=== PATIENT | male | born 1950 | race Caucasian/White ===

== ENCOUNTER → 2017-03-29 | Outpatient (CLI) | payer OTHER, MEDICARE | LOC: BMCIMAGING 08:32 | PROVIDERS: ATTEND Orthopaedic Surgery | DX: M25.552 Pain in left hip (principal); M25.9 Joint disorder, unspecified ==

== ENCOUNTER 2018-08-05 02:49 | Observation (INO) | payer OTHER, MEDICARE ==
--- NOTE | 2018-08-05 02:56 | EDPHY ---
H & P Time Seen by Provider: 08/05/18 02:56 HPI/ROS: HPI CHIEF COMPLAINT: Shortness of breath, dyspnea on exertion, right-sided pleuritic pain. HISTORY OF PRESENT ILLNESS: This is a very pleasant 67-year-old male, history of hyperlipidemia, additionally history of coronary artery disease without stents due to a high calcium score, presents emergency room with 1 and half months of dyspnea on exertion progressively getting worse. Patient reports to me he is an avid runner. He states over the past month and a half he has progressively worsening shortness of breath especially when he goes to run. States when he has been running he gets dyspnea on exertion has to stop running and walk. He also reports that he has elevated heart rate. Denies any significant chest pain. However at times when he is exerting himself he has developed some chest pressure. He reports to me that she denies when he takes deep breath in he gets some right -sided sharp stabbing pleuritic pain. Denies he woke up around 1:30 a.m. State he thought his heart rate was fast in 80s to 90s. No chest pain. No fever, he has developed a dry cough. Recently saw his chiropractor and was discussing all this with him and was concerned about pulmonary embolism in recommend get checked out. Past Medical History: Hyperlipidemia, high calcium score. Liver hemangioma. Past Surgical History: Liver hemangioma removal. Social History: Denies drugs alcohol tobacco daily. Avid runner. 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 Family History: Significant cardiovascular history in his father. OR late 50s. ROS REVIEW OF SYSTEMS: 10 Systems were reviewed and negative with the exception of the elements mentioned in the history of present illness. Exam Constitutional triage nursing summary reviewed, vital signs reviewed, awake/ alert. Eyes normal conjunctivae and sclera, EOMI, PERRLA. HENT normal inspection, atraumatic, moist mucus membranes, no epistaxis, neck supple/ no meningismus, no raccoon eyes. Respiratory clear to auscultation bilaterally, normal breath sounds, no respiratory distress, no wheezing. Cardiovascular rate normal, regular rhythm, no murmur, no edema, distal pulses normal. Gastrointestinal soft, non-tender, no rebound, no guarding, normal bowel sounds, no distension, no pulsatile mass. Genitourinary no CVA tenderness. Musculoskeletal no midline vertebral tenderness, full range of motion, no calf swelling, no tenderness of extremities, no meningismus, good pulses, neurovascularly intact. Skin pink, warm, & dry, no rash, skin atraumatic. Neurologic awake, alert and oriented x 3, AAOx3, moves all 4 extremities equally, motor intact, sensory intact, CN II-XII intact, normal cerebellar, normal vision, normal speech. Psychiatric normal mood/affect. Heme/Lymph/Immune no lymphadenopathy. Differential Diagnosis: Differential diagnosis includes but is not limited to: ACS, atypical chest pain, pneumothorax, pneumonia, pulmonary embolism, aortic dissection, congestive heart failure, tumor, musculoskeletal pain, esophageal pain, GERD, peptic ulcer disease, pancreatitis Medical Decision Making: Plan for this patient IV establishment with IV fluid bolus, EKG, troponin, dolly operator, basic labs, D-dimer, low threshold for CT angiogram of the chest. Re-evaluation: EKG interpretation by me on record in [employer] system. Impression time of EKG 3:21 a.m., sinus rhythm rate of 78, I do not appreciate any acute significant ST elevation. Patient has a positive D-dimer 2.91. Will proceed with CT angiogram of the chest to rule out pulmonary embolism. CT angiogram of the chest obtained a positive D-dimer in the setting of right- sided pleuritic pain this shows bilateral acute appearing pulmonary emboli most proximally within the right interlobar pulmonary artery with finding suspicion for right heart strain correlate with echocardiogram suggested. Pulmonary infarct in the tendon inferior right lower lobe. Given the patient's pulmonary emboli with pulmonary infarct plan will be for heparin drip. Admit to the hospital. Faxed me by direct Radiology at 5:01 a.m.. Will consult the hospitalist service for admission. 0522: Spoke with the hospitalist service agrees for admission. Dr. Reid Agrees to admit Patient updated agrees for admission. Source: Patient Constitutional: Initial Vital Signs Temperature (C) 36.9 C 08/05/18 02:56 Heart Rate 82 08/05/18 02:56 Respiratory Rate 16 08/05/18 02:56 Blood Pressure 168/101 H 08/05/18 02:56 O2 Sat (%) 96 08/05/18 02:56 O2 Delivery Mode Room Air Allergies/Adverse Reactions: No Known Allergies Allergy (Verified 08/05/18 02:54) Home Medications: Medication Instructions Recorded Herbals/Supplements -Info Only 1 ea PO DAILY 08/05/18 Levothyroxine [Synthroid 50 mcg 50 mcg PO DAILY06 08/05/18 (*)] Melatonin [Melatonin 1 mg] 1 mg PO HS 08/05/18 [place]-3 Fatty Acids [Fish Oil 1000 1,000 mg PO DAILY 08/05/18 mg (*)] [place]-3 Fatty Acids [Fish Oil 1000 2,000 mg PO HS 08/05/18 mg (*)] Rosuvastatin Calcium [Crestor] 10 mg PO HS 08/05/18 Apixaban [Eliquis] 10 mg PO BID #74 tab 08/06/18 Medical Decision Making - Data Points Laboratory Results: Laboratory Results 08/05/18 03:06 08/05/18 03:06 Medications Given: Discontinued Medications Acetaminophen (Tylenol) 650 mg PO Q4HRS PRN PRN Reason: Pain, Mild/Fever, Can Take PO Stop: 02/01/19 05:21 Last Admin: 08/05/18 21:12 Dose: 650 mg Apixaban (Eliquis) 10 mg PO BID CHAVA Stop: 02/02/19 08:59 Last Admin: 08/06/18 10:01 Dose: 10 mg Heparin Sodium (Porcine) (Heparin Injection) 0 unit IVP EDNOW ONE Stop: 08/05/18 05:06 Last Admin: 08/05/18 05:20 Dose: 6,700 units Sodium Chloride (Ns) 1,000 mls @ 0 mls/hr IV EDNOW ONE; Wide Open PRN Reason: Protocol Stop: 08/05/18 03:12 Last Admin: 08/05/18 03:16 Dose: 1,000 mls Heparin Sodium (Porcine) (Heparin 50 Units/Ml (Premix)) 500 mls @ 0 mls/hr IV EDNOW ONE; Per Protocol PRN Reason: Protocol Stop: 08/05/18 05:06 Last Admin: 08/05/18 05:20 Dose: 500 mls Heparin Sodium (Porcine) (Heparin 50 Units/Ml (Premix)) 500 mls @ 0 mls/hr IV CONT CHAVA; Per Protocol PRN Reason: Protocol Stop: 02/01/19 05:29 Last Admin: 08/05/18 22:18 Dose: 500 mls [facility]othy[facility]ine [facility] Stop: 02/02/19 05:59 Last Admin: 08/06/18 05:51 Dose: 50 mcg Miscellaneous Medication (Melatonin [Melatonin 1 Mg]) 1 mg PO HS [facility] Stop: 02/01/19 20:59 Last Admin: 08/05/18 21:26 Dose: Not Given [id number]-[id number] Ethyl Esters (Fish Oil) 1,000 mg PO DAILY [facility] Stop: 02/02/19 08:59 Last Admin: 08/06/18 10:01 Dose: 1,000 mg Yzcvq-3-Turo Ethyl Esters (Fish Oil) 2,000 mg PO HS [facility] Stop: 02/01/19 20:59 Last Admin: 08/05/18 21:12 Dose: 2,000 mg Rosuvastatin Calcium (Crestor) 10 mg PO [facility] Stop: 02/01/19 20:59 Last Admin: 08/05/18 21:12 Dose: 10 mg Point of Care Test Results: Chemistry 08/05/18 03:17 POC Troponin I 0.00 ng/mL ng/mL (0.00-0.08) Departure - Departure Disposition: [facility] Inpatient Acute Clinical Impression: Pulmonary emboli Qualifiers: Pulmonary embolism type: other Chronicity: acute Acute cor pulmonale presence: with acute cor pulmonale Qualified Code(s): I26.09 - Other pulmonary embolism with acute cor pulmonale Condition: Fair
[2018-08-05] MEDS ORDERED: NS 1,000 ML IV ONE (03:11)
[2018-08-05 03:19] LABS: PLATELET COUNT 193 10^3/uL (150-400)
[2018-08-05 03:27] LABS: INR 0.99 (0.83-1.16); PROTIME(PATIENT) 12.7 SEC (12.0-15.0)
[2018-08-05] MEDS ORDERED: IOPAMIDOL (ISOVUE 370) 100 ML BTL IV ONE (04:01)
[2018-08-05] MEDS ORDERED: HEPARIN/DEXTROSE 500 ML IV ONE (05:05)
[2018-08-05] MEDS ORDERED: HEPARIN 10,000 UNIT/10 ML MDV (1,000 UNIT/ML) IVP ONE (05:05)
[2018-08-05] MEDS ORDERED: ACETAMINOPHEN 325 MG TAB PO PRN (05:22)
[2018-08-05] MEDS ORDERED: ONDANSETRON DISINTEGRATING 4 MG TAB PO PRN (05:22)
[2018-08-05] MEDS ORDERED: ONDANSETRON 4 MG/2 ML VIAL IVP PRN (05:22)
[2018-08-05] MEDS ORDERED: HEPARIN 10,000 UNIT/10 ML MDV (1,000 UNIT/ML) IVP PRN (05:24)
[2018-08-05] MEDS ORDERED: HEPARIN/DEXTROSE 500 ML IV SCH (05:30)
--- NOTE | 2018-08-05 05:45 | PDGENHP ---
History and Physical - Chief Complaint Chest pain - History of Present Illness 67 yo M w/ hx of hypothyroid and HLD presents with R chest wall pain and MCNAMARA. The patient is an avid runner. He has noted a decrease in his exercise ability for the last 6 weeks or so. This mostly manifests asa dyspnea on exertion. Over the last 2 days he then developed R chest wall pain. He noted his heart racing while in bed last night so decided to come in to the ED for evaluation. His evaluation was notable for an elevated D-dimer; CT shows multiple pulmonary emboli with CT evidence of Rt heart strain. He denies recent injury, surgery, or immobilization. He does not have a personal hx of blood clots but he tells me his father of a blood clot. His VS and laboratory work-up are reassuring. He is being admitted for heparin initiation and further work-up. Case discussed with ED physician Dr. Ashton; records reviewed and summarized above. History Information - Allergies/Home Medication List Allergies/Adverse Reactions: No Known Allergies Allergy (Verified 08/05/18 02:54) Home Medications: "Porcine Thyroid" 12/23/10 [Last Taken Unknown] Aspirin [Aspirin 81mg] 81 mg PO DAILY 12/23/10 [Last Taken Unknown] SIMVASTATIN [Zocor] 20 mg PO 12/23/10 [Last Taken Unknown] Levothyroxine [Synthroid 88 mcg (*)] 88 mcg PO DAILY06 08/05/18 [Last Taken Unknown] I have personally reviewed and updated: family history, medical history - Past Medical History hyperlipidemia - Surgical History Additional surgical history: Partial liver resection - Family History Additional family history: Father of a blood clot. - Social History Smoking Status: Former smoker Review of Systems Review of Systems: ROS: 10pt was reviewed & negative except for what was stated in HPI & below Physical Exam Physical Exam: Temp Pulse Resp BP Pulse Ox 36.9 C 77 16 166/90 H 96 08/05/18 02:56 08/05/18 04:22 08/05/18 04:22 08/05/18 04:22 08/05/18 04:22 Constitutional: no apparent distress, not in pain Eyes: PERRL, EOMI Ears, Nose, Mouth, Throat: moist mucous membranes, no oral mucosal ulcers Cardiovascular: regular rate and rhythym, no murmur, rub, or gallop Respiratory: no respiratory distress, clear to auscultation Gastrointestinal: normoactive bowel sounds, soft, non-tender abdomen Skin: warm, normal color Musculoskeletal: full muscle strength, no muscle tenderness Neurologic: AAOx3, CN II-XII Intact Psychiatric: interacting appropriately, not anxious Lab Data & Imaging Review 08/05/18 03:06 08/05/18 03:06 WBC 8.78 10^3/uL (3.80-9.50) 08/05/18 03:06 RBC 4.67 10^6/uL (4.40-6.38) 08/05/18 03:06 Hgb 15.1 g/dL (13.7-17.5) 08/05/18 03:06 Hct 43.4 % (40.0-51.0) 08/05/18 03:06 MCV 92.9 fL (81.5-99.8) 08/05/18 03:06 MCH 32.3 pg (27.9-34.1) 08/05/18 03:06 MCHC 34.8 g/dL (32.4-36.7) 08/05/18 03:06 RDW 12.9 % (11.5-15.2) 08/05/18 03:06 Plt Count 193 10^3/uL (150-400) 08/05/18 03:06 MPV 10.1 fL (8.7-11.7) 08/05/18 03:06 Neut % (Auto) 71.3 % (39.3-74.2) 08/05/18 03:06 Lymph % (Auto) 15.9 % (15.0-45.0) 08/05/18 03:06 [place] % (Auto) 10.4 % (4.5-13.0) 08/05/18 03:06 Eos % (Auto) 1.8 % (0.6-7.6) 08/05/18 03:06 Baso % (Auto) 0.3 % (0.3-1.7) 08/05/18 03:06 Nucleat RBC Rel Count 0.0 % (0.0-0.2) 08/05/18 03:06 Absolute Neuts (auto) 6.25 10^3/uL (1.70-6.50) 08/05/18 03:06 Absolute Lymphs (auto) 1.40 10^3/uL (1.00-3.00) 08/05/18 03:06 Absolute Monos (auto) 0.91 10^3/uL (0.30-0.80) H 08/05/18 03:06 Absolute Eos (auto) 0.16 10^3/uL (0.03-0.40) 08/05/18 03:06 Absolute Basos (auto) 0.03 10^3/uL (0.02-0.10) 08/05/18 03:06 Absolute Nucleated RBC 0.00 10^3/uL (0-0.01) 08/05/18 03:06 Immature Gran % 0.3 % (0.0-1.1) 08/05/18 03:06 Immature Gran # 0.03 10^3/uL (0.00-0.10) 08/05/18 03:06 PT 12.7 SEC (12.0-15.0) 08/05/18 03:06 INR 0.99 (0.83-1.16) 08/05/18 03:06 APTT 29.8 SEC (23.0-38.0) 08/05/18 03:06 D-Dimer 2.91 ug/mLFEU (0.00-0.50) H 08/05/18 03:06 Sodium 138 mEq/L (135-145) 08/05/18 03:06 Potassium 4.4 mEq/L (3.5-5.2) 08/05/18 03:06 Chloride 100 mEq/L (97-110) 08/05/18 03:06 Carbon Dioxide 28 mEq/l (22-31) 08/05/18 03:06 Anion Gap 10 mEq/L (6-14) 08/05/18 03:06 BUN 22 mg/dL (7-23) 08/05/18 03:06 Creatinine 0.9 mg/dL (0.7-1.3) 08/05/18 03:06 Estimated GFR > 60 08/05/18 03:06 Glucose 89 mg/dL (70-100) 08/05/18 03:06 Calcium 8.9 mg/dL (8.5-10.4) 08/05/18 03:06 Magnesium 2.1 mg/dL (1.6-2.3) 08/05/18 03:06 Total Bilirubin 0.7 mg/dL (0.1-1.4) 08/05/18 03:06 Conjugated Bilirubin 0.1 mg/dL (0.0-0.5) 08/05/18 03:06 Unconjugated Bilirubin 0.6 mg/dL (0.0-1.1) 08/05/18 03:06 AST 25 IU/L (17-59) 08/05/18 03:06 ALT 35 IU/L (21-72) 08/05/18 03:06 Alkaline Phosphatase 61 IU/L (38-126) 08/05/18 03:06 POC Troponin I 0.00 ng/mL (0.00-0.08) 08/05/18 03:17 NT-Pro-B Natriuret Pep 26 pg/mL (0-125) 08/05/18 03:06 Total Protein 6.6 g/dL (6.3-8.2) 08/05/18 03:06 Albumin 3.8 g/dL (3.5-5.0) 08/05/18 03:06 Visualized and Interpreted EKG results: Yes EKG Interpretation: Positive for: normal sinsus rhythm Assessment & Plan Assessment: 67 yo M w/ hx of HLD presents with pulmonary emboli. Plan: 1. Pulmonary emboli - Seemingly unprovoked; patient has no VTE hx but tells me father of a blood clot. CT demonstrates multiple pulmonary emboli with CT evidence of Rt heart strain. He denies recent injury, surgery, or immobilization. His VS and laboratory work-up are reassuring. - Admit for observation - Heparin gtt started in ED, will continue for now - TTE ordered to evaluate Rt heart strain seen on CT 2. HLD - Continue statin 3. Hypothyroid - Continue LTX Diet - Regular Code - Full Ppx - Heparin gtt Dispo - Admit under observation status
--- NOTE | 2018-08-05 09:46 | ASMTCASEMG ---
Living Arrangements What is your living Answers: With Spouse arrangement? Who do you live with? Type Of Residence What kind of residence do Answers: House you live in? Case Management Evaluation Functional: Able to Answers: No return Home with Prior Level of Function/Care Discharge Plan Comments Coordination Status Comments Notes: Pt was admitted early this morning through ED for complaints of shortness of breath, dyspnea on exertion, and right-sided pleuritic pain. Imaging shows a right-sided pulmonary embolism. CM met with pt and hospitalist Dr. Jeerz in pt's room. It was determined that pt has frequent (every 5 - 10 days) episodes of arrhythmia but has never seen a underground mine superintendent about it. With his permission, Dr. Jerez put in a cardiology referral for pt to be seen while he is here in the hospital. Pt lives at home with his Piper [phone] in [place] and is otherwise healthy and independent. He is a runner and runs about 20 miles per week. His father of a blood clot so pt has some concern about that. CM will continue to follow in case needs arise. CM plan: TBD (most likely independent to home) Date Signed: 08/05/2018 09:45 AM Electronically Signed By:Kayley Jenkins
--- NOTE | 2018-08-05 09:52 | HOSPPROG ---
Hospitalist Progress Note Assessment/Plan: # PE, provoked after trip to [place] - cont heparin gtt for now # NSVT, 8 beats - reports positive calcium scans in the past, no other cardiac testing - discussed with Dr Nelson - echo ordered # HLD - statin Subjective: CP ongoing Objective: Vital Signs Temp Pulse Resp BP Pulse Ox 36.9 C 73 16 154/96 H 94 08/05/18 02:56 08/05/18 06:02 08/05/18 06:02 08/05/18 06:02 08/05/18 06:02 PT 12.7 SEC (12.0-15.0) 08/05/18 03:06 INR 0.99 (0.83-1.16) 08/05/18 03:06 chart reviewed discussed with Dr Nelson CTA reviewed - Physical Exam Constitutional: no apparent distress, appears nourished Cardiovascular: regular rate and rhythym, no murmur, rub, or gallop Respiratory: no respiratory distress, no rales or rhonchi, clear to auscultation Gastrointestinal: soft, non-tender abdomen, no palpable masses, No guarding, No rebound, No distension ICD10 Worksheet Patient Problems: Problems Problem Status Onset Pulmonary emboli Acute
--- NOTE | 2018-08-05 10:44 | PDCARCONS ---
Cardiology Consult Reason for Consult: Nonsustained wide complex tachycardia Chief Complaint: Shortness of breath, pulmonary embolism Requesting Physician: Ion Jerez MD History of Present Illness: 67-year-old male, known to me, his is a patient of mine. He remains very active, was in [place] in June. Returned back after a 7 hour direct flight. He was exercising 5 days later and noticed that he was more short of breath than usual, ascribed this to altitude. Subsequently he had right arm numbness which was related to a spinal issue and ignored the symptoms of shortness of breath until last night. He had told his chiropractor that he was continuing to have short of breath who had advised him to go to the emergency department. He woke up last night and was worrying about the conversation and decided to come to the emergency department. He was found to have bilateral pulmonary emboli. At this time he denies any complaints. I was asked to consult on the patient because he had 8 beat of slightly irregular wide complex tachycardia at 140- 150 beats per minute. He was asymptomatic with this. There is no family history of sudden . He has not had syncope. History Information - Allergies/Home Medication List Allergies/Adverse Reactions: No Known Allergies Allergy (Verified 08/05/18 02:54) Home Medications: Aspirin [Aspirin 81mg] 81 mg PO HS 12/23/10 [Last Taken 08/04/18] Herbals/Supplements -Info Only 1 ea PO DAILY 08/05/18 [Last Taken Unknown] Levothyroxine [Synthroid 50 mcg (*)] 50 mcg PO DAILY06 08/05/18 [Last Taken ] Melatonin [Melatonin 1 mg] 1 mg PO HS 08/05/18 [Last Taken 08/04/18] [place]-3 Fatty Acids [Fish Oil 1000 mg (*)] 1,000 mg PO DAILY 08/05/18 [Last Taken 08/04/18] [place]-3 Fatty Acids [Fish Oil 1000 mg (*)] 2,000 mg PO HS 08/05/18 [Last Taken 08/04/18] Rosuvastatin Calcium [Crestor 10mg (RX)] 10 mg PO HS 08/05/18 [Last Taken ] I have personally reviewed and updated: family history, medical history, social history, surgical history Past Medical History: - Social History Smoking Status: Former smoker Physical Exam Physical Exam: Temp Pulse Resp BP Pulse Ox 36.9 C 73 16 154/96 H 94 08/05/18 02:56 08/05/18 06:02 08/05/18 06:02 08/05/18 06:02 08/05/18 06:02 Constitutional: no apparent distress, appears nourished, not in pain Eyes: PERRL, EOMI Ears, Nose, Mouth, Throat: moist mucous membranes, hearing normal Cardiovascular: regular rate and rhythym, no murmur, rub, or gallop Respiratory: no respiratory distress, no rales or rhonchi, clear to auscultation Gastrointestinal: normoactive bowel sounds, soft, non-tender abdomen Genitourinary: no bladder fullness Skin: warm, normal color Musculoskeletal: full muscle strength Neurologic: AAOx3 Psychiatric: interacting appropriately, not anxious, not encephalopathic, thought process linear Lab and Imaging 08/05/18 03:06 08/05/18 03:06 WBC 8.78 10^3/uL (3.80-9.50) 08/05/18 03:06 RBC 4.67 10^6/uL (4.40-6.38) 08/05/18 03:06 Hgb 15.1 g/dL (13.7-17.5) 08/05/18 03:06 Hct 43.4 % (40.0-51.0) 08/05/18 03:06 MCV 92.9 fL (81.5-99.8) 08/05/18 03:06 MCH 32.3 pg (27.9-34.1) 08/05/18 03:06 MCHC 34.8 g/dL (32.4-36.7) 08/05/18 03:06 RDW 12.9 % (11.5-15.2) 08/05/18 03:06 Plt Count 193 10^3/uL (150-400) 08/05/18 03:06 MPV 10.1 fL (8.7-11.7) 08/05/18 03:06 Neut % (Auto) 71.3 % (39.3-74.2) 08/05/18 03:06 Lymph % (Auto) 15.9 % (15.0-45.0) 08/05/18 03:06 [place] % (Auto) 10.4 % (4.5-13.0) 08/05/18 03:06 Eos % (Auto) 1.8 % (0.6-7.6) 08/05/18 03:06 Baso % (Auto) 0.3 % (0.3-1.7) 08/05/18 03:06 Nucleat RBC Rel Count 0.0 % (0.0-0.2) 08/05/18 03:06 Absolute Neuts (auto) 6.25 10^3/uL (1.70-6.50) 08/05/18 03:06 Absolute Lymphs (auto) 1.40 10^3/uL (1.00-3.00) 08/05/18 03:06 Absolute Monos (auto) 0.91 10^3/uL (0.30-0.80) H 08/05/18 03:06 Absolute Eos (auto) 0.16 10^3/uL (0.03-0.40) 08/05/18 03:06 Absolute Basos (auto) 0.03 10^3/uL (0.02-0.10) 08/05/18 03:06 Absolute Nucleated RBC 0.00 10^3/uL (0-0.01) 08/05/18 03:06 Immature Gran % 0.3 % (0.0-1.1) 08/05/18 03:06 Immature Gran # 0.03 10^3/uL (0.00-0.10) 08/05/18 03:06 PT 12.7 SEC (12.0-15.0) 08/05/18 03:06 INR 0.99 (0.83-1.16) 08/05/18 03:06 APTT 29.8 SEC (23.0-38.0) 08/05/18 03:06 D-Dimer 2.91 ug/mLFEU (0.00-0.50) H 08/05/18 03:06 Sodium 138 mEq/L (135-145) 08/05/18 03:06 Potassium 4.4 mEq/L (3.5-5.2) 08/05/18 03:06 Chloride 100 mEq/L (97-110) 08/05/18 03:06 Carbon Dioxide 28 mEq/l (22-31) 08/05/18 03:06 Anion Gap 10 mEq/L (6-14) 08/05/18 03:06 BUN 22 mg/dL (7-23) 08/05/18 03:06 Creatinine 0.9 mg/dL (0.7-1.3) 08/05/18 03:06 Estimated GFR > 60 08/05/18 03:06 Glucose 89 mg/dL (70-100) 08/05/18 03:06 Calcium 8.9 mg/dL (8.5-10.4) 08/05/18 03:06 Magnesium 2.1 mg/dL (1.6-2.3) 08/05/18 03:06 Total Bilirubin 0.7 mg/dL (0.1-1.4) 08/05/18 03:06 Conjugated Bilirubin 0.1 mg/dL (0.0-0.5) 08/05/18 03:06 Unconjugated Bilirubin 0.6 mg/dL (0.0-1.1) 08/05/18 03:06 AST 25 IU/L (17-59) 08/05/18 03:06 ALT 35 IU/L (21-72) 08/05/18 03:06 Alkaline Phosphatase 61 IU/L (38-126) 08/05/18 03:06 POC Troponin I 0.00 ng/mL (0.00-0.08) 08/05/18 03:17 NT-Pro-B Natriuret Pep 26 pg/mL (0-125) 08/05/18 03:06 Total Protein 6.6 g/dL (6.3-8.2) 08/05/18 03:06 Albumin 3.8 g/dL (3.5-5.0) 08/05/18 03:06 Telemetry: Normal sinus rhythm. 8 beat episode of slightly irregular wide complex tachycardia, 140-150 beats per minute, differential diagnosis includes atrial tachycardia with aberrancy versus ventricular tachycardia. A/P Assessment: 1. Hyperlipidemia 2. Bilateral pulmonary emboli, family history of pulmonary emboli 3. Positive coronary calcium score 4. Wide complex tachycardia, 8 beats, slightly irregular Plan: Echocardiogram today shows normal left ventricular function, moderate pulmonary hypertension likely related to pulmonary embolism. Pulmonary embolism temporally blood again after a 7 hr flight from [place]. Anticoagulation per hospitalist team. Currently on heparin. Wide complex tachycardia differential diagnosis includes atrial tachycardia with aberrancy given that it is slightly irregular versus ventricular tachycardia. Echocardiogram showed normal LV function. He does have elevated coronary calcium score related to hyperlipidemia for which he is being treated. Would recommend checking troponin q.8 hours x3. If rules out for CT, myocardial perfusion stress testing could be done as an outpatient. Will follow with you.
--- NOTE | 2018-08-05 10:46 | ECHO ---
[email or web address] [address] [address] Main: [phone] Echocardiography Examination Transthoracic Name: SHELBY AZUL MR#: [id number] Study Date: 08/05/2018 Study Time: 09:20 AM Date of : 1950 Age: 67 year(s) Height: 185.4 cm (73 in.) Weight: 80.74 kg (178 lb.) BSA: 2.05 m2 Gender: Male Examination: Echo Contrast: Image Quality: Adequate Rhythm: Heart Rate: BP: / Indication: PE, Rt heart strain ? Procedure Staff Referring Physician: Frozen Food Selector: Diana Gordon WERNER Reading Physician: Juan Luis Nelson MD Requesting Provider: Ordering Physician: Chris Reid Indication: PE, Rt heart strain ? Measurements Chambers AV/MV Label Value Normal Value Label Value Normal Value LVOTd 2.2 cm (1.9cm - 2.1cm) AV PGmax 8 mmHg LVOT VTI 24.2 cm (18cm - 22cm) AV PGmean 5 mmHg LVDd, 2D 4.7 cm (4.2cm - 5.9cm) AV Vmax 1.43 m/s LVDs, 2D 2.8 cm (2.1cm - 4cm) RAMY (VTI) 3.7 cm2 IVSd, 2D 1.4 cm (0.6cm - 1.1cm) MV E Vmax 0.74 m/s LVPWd, 2D 1 cm (0.6cm - 1cm) MV A Vmax 0.8 m/s LVEF, BP 60 % (55% - 70%) MV E/A 0.92 LVEF, 2D 71 % (54% - 74%) MV E/E' lateral 6.2 LVOT PGmean 3 mmHg MV E/E' septal 9.4 (0.45 - 1.25) LVOT Vmean 0.86 m/s MV DT 218 ms LA Volume, BP 59 ml (18ml - 58ml) MV E' septal 0.08 m/s LADs, 2D 3.3 cm (3cm - 4cm) MV PHT 0.06 s LAESV index, BP 28.8 ml/m2 MVA PHT 3.5 cm2 RA Area 18 cm2 MV E' lateral 0.12 m/s Additional Vessels MV E/E' mean 7.4 Label Value Normal Value MV PHT 62 ms AoAsc 3 cm MV E' mean 0.1 m/s AoRoot, 2D 3.2 cm (1.4cm - 2.6cm) TV/PV Label Value Normal Value Patient: SHELBY AZUL Study Date: 08/05/2018 Page 1 of 2 09:20 AM RA Pressure 5 mmHg RVSP 59 mmHg TR Pmax 54 mmHg TR Vmax 3.69 m/s PV PGmax 3 mmHg PV Vmax, Caliper 0.84 m/s (0.6m/s - 0.9m/s) Conclusions Normal left ventricular systolic function, measured left ventricular ejection fraction 60%. Asymmetric septal hypertrophy. Mild mitral regurgitation. Mild tricuspid regurgitation. Moderate pulmonary hypertension. Estimated RVSP 59 mm of mercury. No pericardial effusion. Findings Left Ventricle: Left ventricle is normal in size. Normal global systolic left ventricular function. The ejection fraction, measured by Simpsons method, is 60 %. EF range is estimated at 55 % - 60 %. There is asymmetrical septal hypertrophy. There are no regional wall motion abnormalities. Left ventricular diastolic function parameters are normal. Right Ventricle: Normal size right ventricle. Right ventricular systolic function is normal. Left Atrium: The left atrium is normal in size. Right Atrium: The right atrium is normal in size. Mitral Valve: Mitral valve appears structurally normal. Mild mitral regurgitation. No mitral valve stenosis. Aortic Valve: Aortic leaflets are structurally normal. No significant aortic valve regurgitation. There is no aortic stenosis. Tricuspid Valve: Tricuspid valve leaflets are structurally normal. Mild tricuspid regurgitation. No tricuspid valve stenosis. Right Ventricular systolic pressure is measured at 59 mmHg. Pulmonary artery pressure moderately increased. Pulmonic Valve: Pulmonic leaflets are structurally normal. Aorta: The aortic root size in 2D measures 3.2 cm. The ascending aorta measures 3.0 cm. Aorta Measurements AoRoot, 2D is 3.2 cm. Pericardium: No pericardial effusion. Exam Details Procedure Ordered: Echo Procedure Status: Routine study Image Quality: Adequate Facility Location: Bedside (No Signature Object) Patient: SHELBY AZUL Study Date: 08/05/2018 Page 2 of 2 09:20 AM [id number]
[2018-08-05] MEDS ORDERED: OMEGA-3 FATTY ACIDS 1,000 MG CAP PO SCH (21:00)
[2018-08-05] MEDS ORDERED: MELATONIN 1 MG PO SCH (21:00)
[2018-08-05] MEDS ORDERED: ROSUVASTATIN CALCIUM 10 MG TAB PO SCH (21:00)
[2018-08-06] MEDS ORDERED: LEVOTHYROXINE 50 MCG TAB PO SCH (06:00)
[2018-08-06 08:04] VITALS: BP 141/76
--- NOTE | 2018-08-06 08:56 | ASMTLACE ---
BETHANYE Length of stay for Answers: 1 day current admission Acuity / Level of Answers: No Care: Did the patient have an inpatient admission? Comorbidities - select Answers: Coronary Artery Disease all that apply Score: 3 Date Signed: 08/06/2018 08:55 AM Electronically Signed By:Kayley Jenkins
--- NOTE | 2018-08-06 08:59 | ASDISCHSUM ---
Discharge Information Plan Status:Home with No Needs Medically Cleared to Leave: Discharge Date: D/C Disposition: ADT D/C Disposition:Home, Routine, Self-Care Projected Discharge Date: Transportation at D/C: Discharge Delay Reason: Follow-Up Date: Discharge Slot: Final Diagnosis: Placement Information Patient Contact Information Contact Name:FATIMAH Relationship: Address:[address] [place] [address] Work Phone: City:[employer] [facility] Phone: State/Zip Code:[place] [address] Email: Financial Information Financial Class:Medicare Primary Plan Desc:MEDICARE OUTPATIENT Primary Plan Number:[id number] Secondary Plan Desc:[employer]MENT Secondary Plan Number:[id number] Assessment Information [facility] Initial CM Assessment Living Arrangements What is your living Answers: With Spouse arrangement? Who do you live with? Type Of Residence What kind of residence do Answers: House you live in? Case Management Evaluation Functional: Able to Answers: No return Home with Prior Level of Function/Care Discharge Plan Comments Coordination Status Comments Notes: Pt was admitted early this morning through ED for complaints of shortness of breath, dyspnea on exertion, and right-sided pleuritic pain. Imaging shows a right-sided pulmonary embolism. CM met with pt and hospitalist Dr. Jerez in pt's room. It was determined that pt has frequent (every 5 - 10 days) episodes of arrhythmia but has never seen a analytics director about it. With his permission, Dr. Jerez put in a cardiology referral for pt to be seen while he is here in the hospital. Pt lives at home with his Piper [phone] in [place] and is otherwise healthy and independent. He is a runner and runs about 20 miles per week. His father of a blood clot so pt has some concern about that. CM will continue to follow in case needs arise. CM plan: TBD (most likely independent to home) Date Signed: 08/05/2018 09:45 AM Electronically Signed By:Kayley Jenkins LACE LACE Length of stay for Answers: 1 day current admission Acuity / Level of Answers: No Care: Did the patient have an inpatient admission? Comorbidities - select Answers: Coronary Artery Disease all that apply Score: 3 Date Signed: 08/06/2018 08:55 AM Electronically Signed By:Kayley Ortega.SALAS Case Management Discharge Plan Note Case Management Discharge Discharge Order Complete? Answers: Yes Patient to Obtain Answers: Independently Medications Transportation Arranged Answers: Family/Friends Family Notified Answers: Yes Notes: pt phoned for ride Discharge Comments Notes: Pt is being D/C'd independently to home today. His is picking him up. He has arranged a follow-up appt with his PCP for next week. No CM needs. Date Signed: 08/06/2018 08:59 AM Electronically Signed By:Kayley Jenkins Intervention Information
[2018-08-06] MEDS ORDERED: APIXABAN 5 MG TAB PO SCH (09:00)
[2018-08-06] MEDS ORDERED: OMEGA-3 FATTY ACIDS 1,000 MG CAP PO SCH (09:00)
[2018-08-06] MEDS ORDERED: TAMSULOSIN HCL 0.4 MG CAP PO SCH (10:45)
--- NOTE | 2018-08-06 12:52 | GDS ---
[f rep st] DISCHARGE SUMMARY DIAGNOSES: 1. Acute pulmonary embolus. 2. Pulmonary hypertension, moderate. 3. Wide-complex tachycardia. 4. Hyperlipidemia. HOSPITAL COURSE: This is a 67-year-old man who had had about 6 weeks of shortness of breath after a plane flight to [place]. He was found to have bilateral pulmonary emboli with right lower lobe pulmon waqar infarction. He was initially treated with intravenous heparin. He had evidence of right heart s train on his CT scan. The echocardiogram was performed, which showed an RVSP of 59 mmHg. I suspect that this is somewhat chronic in nature, as he had had 6 weeks of symptoms prior to presentation. He has tolerated this very well. He is on room air. He has not been tachycardic, and he has actually been slightly hypertensive. He was transitioned from heparin drip to Eliquis on the day of discharge . He is given appropriate dosing for a pulmonary embolism. He had a wide-complex tachycardia. Unclear if this was ventricular tachycardia or an atrial tachycar stephanie. Regardless, he is anticoagulated. He only had 8 beats. His troponins remained negative after this event. His electrolytes were normal. Recommendation by Cardiology is to follow up with an outp atient stress test and then see Dr. Cueva. This should be done around a month, so he has time to janell elvis from his pulmonary embolus prior to a stress test. He understands this. He will follow up with Dr. Ibarra regarding the duration of anticoagulation. Given the somewhat c hronicity of this and his right-sided heart strain, would consider around a year of anticoagulation p rior to discontinuing, but will defer to PCP. /[id number]/MODL
--- NOTE | 2018-08-08 06:32 | CPEKG ---
Test Reason : OPEN Blood Pressure : / mmHG Vent. Rate : 078 BPM Atrial Rate : 078 BPM P-R Int : 179 ms QRS Dur : 089 ms QT Int : 414 ms P-R-T Axes : 033 -27 056 degrees QTc Int : 472 ms Sinus rhythm Left atrial enlargement Borderline left axis deviation Confirmed by Yang Terrazas ([id number]) on 08/08/2018 6:31:12 AM Referred By: Yang Terrazas Confirmed By:Yang Terrazas
== END 2018-08-06 11:02 | disposition home or self-care (01) ==
LOC: F2W 06:32
PROVIDERS: ADMIT Student in an Organized Health Care Education/Training Program; ATTEND Student in an Organized Health Care Education/Training Program
DX: I26.09 Other pulmonary embolism with acute cor pulmonale (principal); I27.20 Pulmonary hypertension, unspecified; R00.0 Tachycardia, unspecified; E78.5 Hyperlipidemia, unspecified; I25.10 Atherosclerotic heart disease of native coronary artery without angina pectoris; Z82.49 Family history of ischemic heart disease and other diseases of the circulatory system; E03.9 Hypothyroidism, unspecified
CPT/HCPCS: 71045; 71275; 93005; 93306; 96361; 96365; 96366; 96375; 96376; 99285; G0378; J1644; Q9967; 84484-ER; 85520-90

== ENCOUNTER → 2018-09-04 | Outpatient (CLI) | payer OTHER, MEDICARE | LOC: BHFA 13:00 ==